=== PATIENT | female | born 1950 | race Two or more races ===

== ENCOUNTER 2022-03-03 17:44 | Inpatient (IN) | payer OTHER ==
[~2022-03-03] VITALS: Ht 157.5 cm; Wt 50.8 kg
[2022-03-03] MEDS ORDERED: APETIGEN L790 MG/15 PO (18:29)
[2022-03-03] MEDS ORDERED: VERZENIO100 MG PO (18:29)
--- NOTE | 2022-03-03 18:57 | NUR ---
SE RECIBE PTE FEMENINA ALERTA Y ORIENTADA SOLO EN PERSONA EN COMPANIA DE FAMILIAR QUIEN REFIERE PULSO EN 140LAT/MIN DESDE ESTA MANANA. 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 SE REALIZA EKG Y SE PRESENTA CHELLE A , QUIEN ORDENA UBICAR PTE EN AREA DE CRITICO. SE UBICA PTE EN CAMA #1 DE UNIDAD DE CRITICO, SE CONECTA A MONITOR CARDIACO Y OXIMETRIA DE PULSO CONTINUA. SE ENTREGA PTE A RN EN AREA.
--- NOTE | 2022-03-03 20:45 | NUR ---
PTE EVALUADO POR DM QUIEN ORDENA TX MED SE EDUCA A PTE SOBRE TX MED Y REFEIRE ENTENDER. SE NOTIFICAN ABG A TERAPIA RESPIRATORIA Y SE NOTIFICA PLACA DE PECHO A CENTRO DE IMAGENES. SE COLECTAN MUESTRAS DE LAB BAJO MEDIDAS AACETICAS. PTE SE CONECTA A MONITOR CARDIACO MACKENZIE. PTE SE CANALIZA EN BRAZO DERECHO BAJO MEDIDAS ACEPTICAS. PTE BAJO OBSERBACION POR CAMBIO EN BARRETT CONDICION.
--- NOTE | 2022-03-03 23:19 | NUR ---
PTE ALERTA Y ORIENTADO POR ZAY ESFERAS CON BUEN PATRON RESPIRATORIO. ESTA CONECTADA AL MONITOR CARDIACO, NBP Y OXIMETRIA CONTINUA. TIENE CANALIZACION EN BRAZO DERECHO CON IV FLUIDS DE .9NSS @150ML/HR. TIENE CASTANEDA A GRAVEDAD CON ORINA AMARILLA.
--- NOTE | 2022-03-03 23:20 | NUR ---
PENDIENTE CONSULTA CON
[2022-03-09] MEDS ORDERED: FULVESTRAN250 MG/5 M (11:53)
== END 2022-03-18 22:10 | disposition home or self-care (01) | DRG 689 ==
LOC: ER 17:44 → ICU-2 03-04 00:23 → MEDJ 03-04 00:23
PROVIDERS: ADMIT Internal Medicine; ATTEND Internal Medicine
PROC: B24BZZZ Ultrasonography of Heart with Aorta (ICD-10-PCS; 2022-03-04)
PROC: 4A12X4Z Monitoring of Cardiac Electrical Activity, External Approach (ICD-10-PCS; 2022-03-05)
PROC: BW28YZZ Computerized Tomography (CT Scan) of Head using Other Contrast (ICD-10-PCS; 2022-03-08)
PROC: 02HV33Z Insertion of Infusion Device into Superior Vena Cava, Percutaneous Approach (ICD-10-PCS; principal; 2022-03-10)
PROC: 30233N1 Transfusion of Nonautologous Red Blood Cells into Peripheral Vein, Percutaneous Approach (ICD-10-PCS; 2022-03-10)
DX: N39.0 Urinary tract infection, site not specified (principal); J18.8 Other pneumonia, unspecified organism; R65.10 Systemic inflammatory response syndrome (SIRS) of non-infectious origin without acute organ dysfunction; C79.51 Secondary malignant neoplasm of bone; D64.9 Anemia, unspecified; B96.29 Other Escherichia coli [E. coli] as the cause of diseases classified elsewhere; Z74.01 Bed confinement status; Z20.822 Contact with and (suspected) exposure to COVID-19; C50.919 Malignant neoplasm of unspecified site of unspecified female breast